=== PATIENT | male | born 1965 | race Caucasian/White ===

== ENCOUNTER 2021-07-06 19:28 | Inpatient (IN) ==
[2021-07-06] MEDS ORDERED: ONDANSETRON INJ 2 MG/ML 2 ML VIAL IV STA (19:57)
[2021-07-06] MEDS ORDERED: SODIUM CHLORIDE 0.9% 1000ML 1,000 ML IV STA (19:57)
--- NOTE | 2021-07-06 20:02 | Emergency Department Note ---
Impression & Plan Ureteral stone with hydronephrosis, Acute left flank pain ED Provider Note NAME: VENKATA PATIÑO AGE: 55 SEX: M : 1965 ARRIVES VIA: Walk-In INFORMANT: Patient, ED PROVIDER(S): Mustapha Lantigua DO CHIEF COMPLAINT: Flank pain HPI: The patient is a 55-year-old male who presented to the emergency department with his spouse for an evaluation of left-sided flank pain. The patient states he has been having symptoms since around March of this year. He does have a history of hypertension. Has been taking his outpatient pain medication at times but today his pain became much worse and he presented to the emergency department for further evaluation. The patient's noticed nausea but no vomiting. He denies having any chest pain. He has had no recent traveling. The patient states he has never had a stent before. He states has been trying to pass his kidney stone for many weeks. He called his family doctor for a foll ow-up appointment or for referral to urology and they could not do that until he was formally seen in their office. He notices dark urine. He notices no fever. He notices no diarrhea. He notices no lower extremity swelling or weakness. He states the pain is moderate to severe. ROS: See above HPI for pertinent positives & negatives. A total of 10 systems reviewed and were otherwise negative. PAST MEDICAL HISTORY: See Below PAST SURGICAL HISTORY: See Below FAMILY HISTORY: See Below SOCIAL HISTORY: See Below HOME MEDICATIONS: See Below ALLERGIES: See Below VITALS: See Below PHYSICAL EXAMINATION: GENERAL: The patient is awake and alert. He is very anxious appearing and appears to be in significant pain. EYES: The conjunctivae are clear. The pupils are round and reactive. EARS, NOSE, MOUTH AND THROAT: The nose is without any evidence of any deformity. NECK: The neck is nontender and supple. RESPIRATORY: Normal respiratory effort is noted there is no evidence of wheezing rhonchi or rales CARDIOVASCULAR: Regular rate and rhythm noted there no murmurs rubs or gallops normal S1 normal S2. GASTROINTESTINAL: The abdomen is soft. Abdomen is nontender. BACK: No midline tenderness was appreciated. Left CVA tenderness was noted to percussion. MUSCULOSKELETAL/EXTREMITIES: There is no evidence of gross deformity full range of motion is noted in the hips and shoulders. SKIN: There is no obvious evidence of any rash. There are no petechiae, pallor or cyanosis noted. NEUROLOGIC: Patient is awake alert and oriented x3 strength is symmetric patellar reflexes are 2+ bilaterally MEDICAL DECISION MAKING: Patient is a 55-year-old male who presented to the emergency department for an evaluation of flank pain and hematuria. Has a known ureteral calculus on the left which she has been trying to deal with for the last few months. Apparently his pain became much worse this evening. He was treated pain medication in the emergency department. He was reevaluated multiple times. I discussed the patient's laboratory and radiographic studies with him. He was found to have significant hydronephrosis with a large ureteral calculus. Given the patient's findings he was evaluated by the [facility] for further inpatient management and possibly urology referral. Triage Nursing notes reviewed. Prior medical records reviewed Vital Signs: reviewed and remarkable for elevated blood pressure. Differential diagnosis: Renal colic, UTI, appendicitis, diverticulitis, mesenteric ischemia, aortic pathology, infections, inflammatory bowel disease, PUD, biliary pathology, as well as other pathologies. ER treatment provided: See below Diagnostics interpreted by me: ECG: none Cardiac Monitoring: An order was placed for continuous cardiac monitoring. The monitor shows a rate of 63 bpm with sinus rhythm. Laboratory studies: As stated above and show below. Imaging studies: See below Consultation(s): I discussed this case with Dr. Salinas is on-call for the [facility]. Past Med/Surg History Medical History Calculus of kidney Hypertension Social History Smoking Status: Never smoker Feels Safe at Home: Yes Allergies Allergies Allergy/AdvReac Type Severity Reaction Status Date / Time ketorolac Allergy Unknown FREAK OUT Verified 06/30/14 02:40 Home Meds Home Medications Medication Instructions Recorded Confirmed lisinopril 20 mg tablet 20 mg PO QAM 07/06/21 07/06/21 sertraline 100 mg tablet 150 mg PO QAM 07/06/21 07/06/21 Results & Data (ED) Vital Signs Vital Signs - 24 hr 07/06/21 19:33 07/06/21 20:07 07/06/21 20:44 Temperature 36.5 C Temperature Source Temporal Artery Scan Pulse Rate 63 Pulse Rate [Apical] 65 58 L Pulse Rate from SpO2 Sensor Pulse Rhythm [Apical] Regular Pulse Strength [Apical] Normal Respiratory Rate 20 15 16 Respiratory Effort / Characteristics Non-Labored Spontaneous Non-Labored Spontaneous Non-Labored Spontaneous Respiratory Depth Normal Normal Normal Respiratory Pattern Regular Regular Blood Pressure 214/105 H Blood Pressure [Left Arm] 171/109 H 177/92 H Blood Pressure Mean 141 Blood Pressure Mean [Left Arm] 129 120 Blood Pressure Position Sitting Blood Pressure Position [Left Arm] Lying Lying Pulse Oximetry 96 97 95 Oxygen Delivery Method Room Air Room Air Room Air Fraction of Inspired Oxygen Sepsis Recent Fever Within 48 Hours No Sepsis New/Unexplained Change in Mental Status N/A Sepsis Action Taken by Nursing No Action Required 07/06/21 21:29 07/06/21 21:33 07/06/21 22:30 Temperature Temperature Source Pulse Rate 61 70 Pulse Rate [Apical] 57 L Pulse Rate from SpO2 Sensor 70 Pulse Rhythm [Apical] Pulse Strength [Apical] Respiratory Rate 15 15 16 Respiratory Effort / Characteristics Non-Labored Spontaneous Respiratory Depth Normal Respiratory Pattern Regular Blood Pressure 161/86 H 176/112 H Blood Pressure [Left Arm] 177/91 H Blood Pressure Mean 111 133 Blood Pressure Mean [Left Arm] 119 Blood Pressure Position Blood Pressure Position [Left Arm] Pulse Oximetry 96 96 96 Oxygen Delivery Method Fraction of Inspired Oxygen Sepsis Recent Fever Within 48 Hours Sepsis New/Unexplained Change in Mental Status Sepsis Action Taken by Nursing 07/06/21 22:44 07/06/21 23:00 Temperature Temperature Source Pulse Rate 60 63 Pulse Rate [Apical] Pulse Rate from SpO2 Sensor Pulse Rhythm [Apical] Pulse Strength [Apical] Respiratory Rate 19 19 Respiratory Effort / Characteristics Non-Labored Spontaneous Respiratory Depth Normal Respiratory Pattern Regular Blood Pressure 166/91 H Blood Pressure [Left Arm] Blood Pressure Mean 116 Blood Pressure Mean [Left Arm] Blood Pressure Position Blood Pressure Position [Left Arm] Pulse Oximetry 95 96 Oxygen Delivery Method Room Air Fraction of Inspired Oxygen 21 Sepsis Recent Fever Within 48 Hours Sepsis New/Unexplained Change in Mental Status Sepsis Action Taken by Prison Medications Current Medication List: was personally reviewed by me Laboratory Data Attestation: I reviewed the patient's lab results. Result diagrams: 07/06/21 20:06 07/06/21 20:06 Lab Results 07/06/21 07/06/21 07/06/21 Range/Units 20:06 20:06 20:06 WBC 10.99 H (4.8-10.8) K/uL RBC 4.60 L (4.7-6.1) M/uL Hgb 15.2 (14.0-18.0) g/dL Hct 43.3 (42-52) % MCV 94.1 (80-100) fL MCH 33.0 (25-34) pg MCHC 35.1 (32-36) g/dL RDW Std Deviation 45.6 (36.4-46.3) fL RDW Coeff of Royer 13.2 (11.5-14.5) % Plt Count 318 (130-400) K/uL MPV 10.3 (7.4-10.4) fL Immature Gran % (Auto) 0.3 % Neut % (Auto) 83.7 % Lymph % (Auto) 7.9 % [place] % (Auto) 7.0 % Eos % (Auto) 0.9 % Baso % (Auto) 0.2 % Neut # (Auto) 9.20 H (1.4-6.5) K/uL Lymph # (Auto) 0.87 L (1.2-3.4) K/uL [place] # (Auto) 0.77 H (0.11-0.59) K/uL Eos # (Auto) 0.10 (0-0.5) K/uL Baso # (Auto) 0.02 (0-0.2) K/uL Immature Gran # (Auto) 0.03 H (0.00-0.02) K/uL APTT (21.0-31.0) Seconds PTT Ratio D-Dimer (0-500) ug/L FEU Sodium 135 L (136-145) mmol/L Potassium 3.6 (3.5-5.1) mmol/L Chloride 103 (98-107) mmol/L Carbon Dioxide 25 (21-32) mmol/L Anion Gap 7 (3-11) BUN 10 (6-23) mg/dl Creatinine 0.75 (0.6-1.4) mg/dl Est Cr Clr Drug Dosing 166.0 ml/min Est GFR ( Amer) 120.5 ml/min Est GFR (Non-Af Amer) 104.0 ml/min BUN/Creatinine Ratio 13.3 (10-20) Glucose 107 H (70-99(Fasting)) mg/dl Calcium 8.9 (8.5-10.1) mg/dl Total Bilirubin 0.8 (0.2-1.0) mg/dl AST 19 (13-39) U/L ALT 18 (7-52) U/L Alkaline Phosphatase 65 (34-104) U/L B-Natriuretic Peptide (0-100) pg/ml Total Protein 6.9 (6.0-8.3) gm/dl Albumin 4.1 (3.4-5.0) gm/dl Globulin 2.8 (2.5-4.0) gm/dl Albumin/Globulin Ratio 1.5 (0.9-2) Lipase 19 (11-82) U/L Urine Color Yellow Urine Appearance Clear (Clear) Urine pH 7.5 (4.5-7.5) Ur Specific [place] 1.002 (1.000-1.030) Urine Protein Negative (Negative) Urine Glucose (UA) Negative (Negative) Urine Ketones Negative (Negative) Urine Blood 2+ H (Negative) Urine Nitrite Negative (Negative) Urine Bilirubin Negative (Negative) Urine Urobilinogen Negative (Negative) Ur Leukocyte Esterase Negative (Negative) Urine WBC (Auto) Not Reportable Urine RBC (Auto) Not Reportable U Hyaline Cast (Auto) Not Reportable U Epithel Cells (Auto) Not Reportable Urine Bacteria (Auto) Not Reportable Urine RBC 10-30 H (0-4) /hpf Urine WBC 0-5 (0-5) /hpf Ur Epithelial Cells 0-5 (0-5) /lpf Urine Bacteria Negative (Negative) SARS-CoV-2, RNA, NAAT (NEGATIVE) 07/06/21 07/06/21 07/06/21 Range/Units 20:06 20:06 21:59 WBC (4.8-10.8) K/uL RBC (4.7-6.1) M/uL Hgb (14.0-18.0) g/dL Hct (42-52) % MCV (80-100) fL MCH (25-34) pg MCHC (32-36) g/dL RDW Std Deviation (36.4-46.3) fL RDW Coeff of Royer (11.5-14.5) % Plt Count (130-400) K/uL MPV (7.4-10.4) fL Immature Gran % (Auto) % Neut % (Auto) % Lymph % (Auto) % [place] % (Auto) % Eos % (Auto) % Baso % (Auto) % Neut # (Auto) (1.4-6.5) K/uL Lymph # (Auto) (1.2-3.4) K/uL [place] # (Auto) (0.11-0.59) K/uL Eos # (Auto) (0-0.5) K/uL Baso # (Auto) (0-0.2) K/uL Immature Gran # (Auto) (0.00-0.02) K/uL APTT 26.4 (21.0-31.0) Seconds PTT Ratio 1.0 D-Dimer 530 H* (0-500) ug/L FEU Sodium (136-145) mmol/L Potassium (3.5-5.1) mmol/L Chloride (98-107) mmol/L Carbon Dioxide (21-32) mmol/L Anion Gap (3-11) BUN (6-23) mg/dl Creatinine (0.6-1.4) mg/dl Est Cr Clr Drug Dosing ml/min Est GFR ( Amer) ml/min Est GFR (Non-Af Amer) ml/min BUN/Creatinine Ratio (10-20) Glucose (70-99(Fasting)) mg/dl Calcium (8.5-10.1) mg/dl Total Bilirubin (0.2-1.0) mg/dl AST (13-39) U/L ALT (7-52) U/L Alkaline Phosphatase (34-104) U/L B-Natriuretic Peptide 57 (0-100) pg/ml Total Protein (6.0-8.3) gm/dl Albumin (3.4-5.0) gm/dl Globulin (2.5-4.0) gm/dl Albumin/Globulin Ratio (0.9-2) Lipase (11-82) U/L Urine Color Urine Appearance (Clear) Urine pH (4.5-7.5) Ur Specific [place] (1.000-1.030) Urine Protein (Negative) Urine Glucose (UA) (Negative) Urine Ketones (Negative) Urine Blood (Negative) Urine Nitrite (Negative) Urine Bilirubin (Negative) Urine Urobilinogen (Negative) Ur Leukocyte Esterase (Negative) Urine WBC (Auto) Urine RBC (Auto) U Hyaline Cast (Auto) U Epithel Cells (Auto) Urine Bacteria (Auto) Urine RBC (0-4) /hpf Urine WBC (0-5) /hpf Ur Epithelial Cells (0-5) /lpf Urine Bacteria (Negative) SARS-CoV-2, RNA, NAAT NEGATIVE (NEGATIVE) Administered Medications Discontinued Medications Sodium Chloride (Nss 1000ml) 1,000 mls @ 999 mls/hr IV .Q1H1M STA Stop: 07/06/21 20:57 Last Infusion: 07/06/21 21:22 Dose: 0 mls/hr Documented by: [id number] Admin: 07/06/21 20:10 Dose: 999 mls/hr Documented by: [id number] Lisinopril (Lisinopril 10 Mg Tab) 10 mg PO NOW STA Stop: 07/06/21 22:30 Last Admin: 07/06/21 22:55 Dose: 10 mg Documented by: [id number] Morphine Sulfate (Morphine Sulfate 4 Mg/Ml 1 Ml Carp\Vial) 4 mg IV Q15M PRN PRN Reason: Pain Stop: 07/20/21 19:56 Last Admin: 07/06/21 22:56 Dose: 4 mg Documented by: [id number] Admin: 07/06/21 21:30 Dose: 4 mg Documented by: [id number] Admin: 07/06/21 20:10 Dose: 4 mg Documented by: [id number] Ondansetron HCl (Ondansetron Inj 2 Mg/Ml 2 Ml Vial) 4 mg IV NOW STA Stop: 07/06/21 19:58 Last Admin: 07/06/21 20:11 Dose: 4 mg Documented by: [id number] Tamsulosin HCl (Tamsulosin Hcl 0.4 Mg Cap) 0.4 mg PO NOW ONE Stop: 07/06/21 22:55 Last Admin: 07/06/21 23:58 Dose: 0.4 mg Documented by: [id number] Imaging Data Radiologist's Impression: Abdomen/Pelvis CT 07/06/21 19:57 CT OF THE ABDOMEN AND PELVIS WITHOUT CONTRAST CLINICAL HISTORY: Left flank pain. COMPARISON STUDY: CT of the abdomen and pelvis May 28, 2014. TECHNIQUE: Axial images of the abdomen and pelvis were obtained without IV contrast. Images were reviewed in the axial, sagittal, and coronal planes. Automated exposure control was utilized for the study. A dose lowering technique was utilized adhering to the principles of ALARA. FINDINGS: Lung bases are unremarkable. Elevation of the right hemidiaphragm is unchanged. Moderate to severe left hydronephrosis is due to a 7 mm calculus within the distal left ureter, located just inferior to the level of the sacroiliac joint. There is adjacent perinephric and periureteral stranding. 2 calculi within lower pole of the left kidney measure up to 5 mm. No right-sided urinary calculi are present. There is slight prominence of right collecting system without hydronephrosis. Prostate is enlarged, measuring 5.8 cm in transverse dimension. Evaluation of the remainder of the abdomen and pelvis is suboptimal on this unenhanced exam. Unenhanced images of the liver, spleen, adrenal glands and pancreas are unremarkable. Colonic diverticulosis is noted without evidence for acute diverticulitis. There is no evidence for a bowel obstruction. The appendix is normal. Fat-containing bilateral inguinal hernias, left larger than right, are present. IMPRESSION: 1. 7 mm left ureteral calculus which results in moderate to severe left hydronephrosis. The ureteral calculus is within the distal ureter, just inferior to the level of the sacroiliac joint. 2. Left-sided nephrolithiasis. 3. Colonic diverticulosis. No evidence for acute diverticulitis. 4. Enlarged prostate. ACT 112: Negative or not required by law. Electronically signed by: Toni Montenegro M.D. 07/06/2021 10:04 PM Discharge Plan Visit Data Chief Complaint: Hematuria Stated Complaint: KIDNEY STONE, BLOOD IN URINE ED Provider: Mustapha Lantigua Discharge Problem: Ureteral stone with hydronephrosis, Acute left flank pain Patient Disposition: Being Evaluated by Hospitalist Forms Stand Alone Forms: My [employer] Prescriptions Prescriptions: No Action lisinopril 20 mg tablet 20 mg PO QAM RF: 0 sertraline 100 mg tablet 150 mg PO QAM RF: 0 Referrals Referrals: PCP,NO [Primary Care Provider] -
[2021-07-06] MEDS: MoRPHine SULFATE 4 MG/ML 1 ML CARP\\VIAL IV PRN ×3 (20:10→22:56)
[2021-07-06 20:24] LABS: Basophils # (auto) 0.02 K/uL (0-0.2); Basophils % (auto) 0.2 %; Eosinophils % (auto) 0.9 %; Hematocrit (blood only) 43.3 % (42-52); Hemoglobin 15.2 g/dL (14.0-18.0); Immature Granulocytes # (auto) 0.03 K/uL (0.00-0.02); Immature Granulocytes % (auto) 0.3 %; Lymphocytes # (auto) 0.87 K/uL (1.2-3.4); Lymphocytes % (auto) 7.9 %; Mean Corpuscular Hgb Conc 35.1 g/dL (32-36); Mean Corpuscular Volume 94.1 fL (80-100); Mean Platelet Volume 10.3 fL (7.4-10.4); Monocytes # (auto) 0.77 K/uL (0.11-0.59); Neutrophils % (auto) 83.7 %; Platelet Count 318 K/uL (130-400); RDW Coefficient of Variation 13.2 % (11.5-14.5); RDW Standard Deviation 45.6 fL (36.4-46.3); White Blood Count 10.99 K/uL (4.8-10.8)
[2021-07-06 20:31] LABS: Appearance Urine Clear (Clear); Bilirubin Urine Negative (Negative); Blood Urine 2+ (Negative); Color Urine Yellow; Glucose Urine UA Negative (Negative); Ketones Urine Negative (Negative); Leukocyte Esterase Urine Negative (Negative); Nitrite Urine Negative (Negative); Protein Urine Negative (Negative); Specific Gravity Urine 1.002 (1.000-1.030); Urobilinogen Urine Negative (Negative); pH Urine 7.5 (4.5-7.5)
[2021-07-06 20:54] LABS: Bacteria Urine Negative (Negative); Epithelial Cell Urine 0-5 /lpf (0-5); WBC Urine 0-5 /hpf (0-5)
[2021-07-06 20:58] LABS: Albumin Globulin Ratio 1.5 (0.9-2); Albumin Level 4.1 gm/dl (3.4-5.0); BUN Creatinine Ratio 13.3 (10-20); Bilirubin,Total 0.8 mg/dl (0.2-1.0); Calcium 8.9 mg/dl (8.5-10.1); Est GFR (African American) 120.5 ml/min; Globulin 2.8 gm/dl (2.5-4.0); Potassium 3.6 mmol/L (3.5-5.1); Total Protein 6.9 gm/dl (6.0-8.3)
--- NOTE | 2021-07-06 22:07 | CT Scan Report ---
CT OF THE ABDOMEN AND PELVIS WITHOUT CONTRAST CLINICAL HISTORY: Left flank pain. COMPARISON STUDY: CT of the abdomen and pelvis May 28, 2014. TECHNIQUE: Axial images of the abdomen and pelvis were obtained without IV contrast. Images were revi ewed in the axial, sagittal, and coronal planes. Automated exposure control was utilized for the matt dy. A dose lowering technique was utilized adhering to the principles of ALARA. FINDINGS: Lung bases are unremarkable. Elevation of the right hemidiaphragm is unchanged. Moderate to severe left hydronephrosis is due to a 7 mm calculus within the distal left ureter, located just inf erior to the level of the sacroiliac joint. There is adjacent perinephric and periureteral stranding. 2 calculi within lower pole of the left kidney measure up to 5 mm. No right-sided urinary calculi ar e present. There is slight prominence of right collecting system without hydronephrosis. Prostate is enlarged, measuring 5.8 cm in transverse dimension. Evaluation of the remainder of the abdomen and pe lvis is suboptimal on this unenhanced exam. Unenhanced images of the liver, spleen, adrenal glands an d pancreas are unremarkable. Colonic diverticulosis is noted without evidence for acute diverticuliti s. There is no evidence for a bowel obstruction. The appendix is normal. Fat-containing bilateral ing uinal hernias, left larger than right, are present. IMPRESSION: 1. 7 mm left ureteral calculus which results in moderate to severe left hydronephrosis. The ureteral calculus is within the distal ureter, just inferior to the level of the sacroiliac joint. 2. Left-sided nephrolithiasis. 3. Colonic diverticulosis. No evidence for acute diverticulitis. 4. Enlarged prostate. ACT 112: Negative or not required by law. Electronically signed by: Toni Montenegro M.D. 07/06/2021 10:04 PM
[2021-07-06] MEDS ORDERED: lisinopril 10 MG TAB PO STA (22:29)
--- NOTE | 2021-07-06 22:31 | History & Physical Report ---
Date of Service July 06, 2021 Assessment & Plan (1) Ureteral stone with hydronephrosis: Plan: Obstructive uropathy secondary to recurrent urolithiasis No sepsis for now Hypertensive urgency secondary to above FARIHA on CPAP GERD status post surgery LE swelling without chest pain/SOB complaints rule out DVT given abnormal D- dimer Medical telemetry given uncontrolled BP Strain urine Urology consult Re: Obstructive uropathy (Patient already seen at the ER by urology provider recommends Flomax trial and n.p.o. status after midnight in anticipation of procedural intervention in a.m.) Analgesia, titrate home BP meds LE venous Dopplers rule out DVT DVT prophylaxis. Lovenox subcu Full code Text document was generated using [employer] voice recognition software. It may contain grammatical or spelling errors. Kindly contact undersigned for clarification of any documentation item in question. History of Present Illness Chief Complaint: Left flank pain Primary Care Provider: Dr. Haines of [facility] History obtained from patient and records. Medical history significant for hypertension, FARIHA on CPAP, chronic hoarseness, GERD status post surgery, BPH, urolithiasis. 4 months history of intermittent achy left flank pain complaints with occasional hematuria reminiscent of kidney stone symptoms. No fever, no chills. No consultations done. Worsening pain noted along with nausea today. Patient consulted ER for evaluation. Medical History as above Surgical History : ESWL, esophagogastric fundoplasty, hernia surgery Family History : Heart disease Personal/Social history : Non-smoker, occasional EtOH intake, [employer] employee Allergies Allergy/AdvReac Type Severity Reaction Status Date / Time ketorolac Allergy Unknown FREAK OUT Verified 06/30/14 02:40 Home Medications Medication Instructions Recorded Confirmed Type lisinopril 20 mg tablet 20 mg PO QAM 07/06/21 07/06/21 History sertraline 100 mg tablet 150 mg PO QAM 07/06/21 07/06/21 History Past Med/Surg History Medical History Calculus of kidney Hypertension Social History Smoking Status: Never smoker Second Hand Exposure: No; Do You Dip or Chew Tobacco: Yes; Tobacco Cessation Education Requested by Patient: No Hx Alcohol Use: No Hx Substance Use: No Preferred Language: Nepalese Communication Ability: Effective Operating Room Technologist Required: No Beliefs That Will Affect Care: None Current Living Situation: Spouse Current Living Situation Comment: Lives at home with Other Information That Helps Us Care for You: No Feels Safe at Home: Yes Safety Concerns: Feels Safe At This Time Assistive Devices: CPAP Review of Systems Review of Systems: As per HPI, all 10 systems reviewed, all other ROS negative Physical Exam Physical Exam: GENERAL: Slightly uncomfortable, pleasant, morbidly obese, dysphonic (chronic ), no respiratory distress SKIN: Normal color, warm HEENT: [place] palpebral conjunctivae, no ptosis, dry buccal mucosa NECK : Supple, short neck, no tenderness CHEST : CTA, no tenderness HEART : Bradycardic, no obvious murmurs ABDOMEN: Some distention, nontender BACK : Minimal left flank tenderness EXTREMITIES : Bilateral LE swelling right greater than the left (new as per patient), no tenderness, no other conspicuous deformities noted NEUROLOGIC : Coherent, no facial asymmetry, no other gross focality Results & Data Results & Data ([facility]) Vital Signs (Past 12 Hours) Vital Signs Temp Pulse Pulse Resp BP BP Pulse Ox 07/06/21 21:33 61 15 161/86 H 96 07/06/21 21:29 57 L 15 177/91 H 96 07/06/21 20:44 58 L 16 177/92 H 95 07/06/21 20:07 65 15 171/109 H 97 07/06/21 19:33 36.5 C 63 20 214/105 H 96 Laboratory Results Laboratory Results WBC 10.99 K/uL (4.8-10.8) H 07/06/21 20:06 RBC 4.60 M/uL (4.7-6.1) L 07/06/21 20:06 Hgb 15.2 g/dL (14.0-18.0) 07/06/21 20:06 Hct 43.3 % (42-52) 07/06/21 20:06 MCV 94.1 fL (80-100) 07/06/21 20:06 MCH 33.0 pg (25-34) 07/06/21 20:06 MCHC 35.1 g/dL (32-36) 07/06/21 20:06 RDW Std Deviation 45.6 fL (36.4-46.3) 07/06/21 20:06 RDW Coeff of [place] 13.2 % (11.5-14.5) 07/06/21 20:06 Plt Count 318 K/uL (130-400) 07/06/21 20:06 MPV 10.3 fL (7.4-10.4) 07/06/21 20:06 Immature Gran % (Auto) 0.3 % 07/06/21 20:06 Neut % (Auto) 83.7 % 07/06/21 20:06 Lymph % (Auto) 7.9 % 07/06/21 20:06 [place] % (Auto) 7.0 % 07/06/21 20:06 Eos % (Auto) 0.9 % 07/06/21 20:06 Baso % (Auto) 0.2 % 07/06/21 20:06 Neut # (Auto) 9.20 K/uL (1.4-6.5) H 07/06/21 20:06 Lymph # (Auto) 0.87 K/uL (1.2-3.4) L 07/06/21 20:06 [place] # (Auto) 0.77 K/uL (0.11-0.59) H 07/06/21 20:06 Eos # (Auto) 0.10 K/uL (0-0.5) 07/06/21 20:06 Baso # (Auto) 0.02 K/uL (0-0.2) 07/06/21 20:06 Immature Gran # (Auto) 0.03 K/uL (0.00-0.02) H 07/06/21 20:06 Sodium 135 mmol/L (136-145) L 07/06/21 20:06 Potassium 3.6 mmol/L (3.5-5.1) 07/06/21 20:06 Chloride 103 mmol/L (98-107) 07/06/21 20:06 Carbon Dioxide 25 mmol/L (21-32) 07/06/21 20:06 Anion Gap 7 (3-11) 07/06/21 20:06 BUN 10 mg/dl (6-23) 07/06/21 20:06 Creatinine 0.75 mg/dl (0.6-1.4) 07/06/21 20:06 Est Cr Clr Drug Dosing 166.0 ml/min 07/06/21 20:06 Est GFR ( Amer) 120.5 ml/min 07/06/21 20:06 Est GFR (Non-Af Amer) 104.0 ml/min 07/06/21 20:06 BUN/Creatinine Ratio 13.3 (10-20) 07/06/21 20:06 Glucose 107 mg/dl (70-99(Fasting)) H 07/06/21 20:06 Calcium 8.9 mg/dl (8.5-10.1) 07/06/21 20:06 Total Bilirubin 0.8 mg/dl (0.2-1.0) 07/06/21 20:06 AST 19 U/L (13-39) 07/06/21 20:06 ALT 18 U/L (7-52) 07/06/21 20:06 Alkaline Phosphatase 65 U/L (34-104) 07/06/21 20:06 Total Protein 6.9 gm/dl (6.0-8.3) 07/06/21 20:06 Albumin 4.1 gm/dl (3.4-5.0) 07/06/21 20:06 Globulin 2.8 gm/dl (2.5-4.0) 07/06/21 20:06 Albumin/Globulin Ratio 1.5 (0.9-2) 07/06/21 20:06 Lipase 19 U/L (11-82) 07/06/21 20:06 Urine Color Yellow 07/06/21 20:06 Urine Appearance Clear (Clear) 07/06/21 20:06 Urine pH 7.5 (4.5-7.5) 07/06/21 20:06 Ur Specific [place] 1.002 (1.000-1.030) 07/06/21 20:06 Urine Protein Negative (Negative) 07/06/21 20:06 Urine Glucose (UA) Negative (Negative) 07/06/21 20:06 Urine Ketones Negative (Negative) 07/06/21 20:06 Urine Blood 2+ (Negative) H 07/06/21 20:06 Urine Nitrite Negative (Negative) 07/06/21 20:06 Urine Bilirubin Negative (Negative) 07/06/21 20:06 Urine Urobilinogen Negative (Negative) 07/06/21 20:06 Ur Leukocyte Esterase Negative (Negative) 07/06/21 20:06 Urine WBC (Auto) Not Reportable 07/06/21 20:06 Urine RBC (Auto) Not Reportable 07/06/21 20:06 U Hyaline Cast (Auto) Not Reportable 07/06/21 20:06 U Epithel Cells (Auto) Not Reportable 07/06/21 20:06 Urine Bacteria (Auto) Not Reportable 07/06/21 20:06 Urine RBC 10-30 /hpf (0-4) H 07/06/21 20:06 Urine WBC 0-5 /hpf (0-5) 07/06/21 20:06 Ur Epithelial Cells 0-5 /lpf (0-5) 07/06/21 20:06 Urine Bacteria Negative (Negative) 07/06/21 20:06 SARS-CoV-2, RNA, NAAT NEGATIVE (NEGATIVE) 07/06/21 21:59 Impressions Abdomen/Pelvis CT 07/06/21 19:57 CT OF THE ABDOMEN AND PELVIS WITHOUT CONTRAST CLINICAL HISTORY: Left flank pain. COMPARISON STUDY: CT of the abdomen and pelvis May 28, 2014. TECHNIQUE: Axial images of the abdomen and pelvis were obtained without IV contrast. Images were reviewed in the axial, sagittal, and coronal planes. Automated exposure control was utilized for the study. A dose lowering technique was utilized adhering to the principles of ALARA. FINDINGS: Lung bases are unremarkable. Elevation of the right hemidiaphragm is unchanged. Moderate to severe left hydronephrosis is due to a 7 mm calculus within the distal left ureter, located just inferior to the level of the sacroiliac joint. There is adjacent perinephric and periureteral stranding. 2 calculi within lower pole of the left kidney measure up to 5 mm. No right-sided urinary calculi are present. There is slight prominence of right collecting system without hydronephrosis. Prostate is enlarged, measuring 5.8 cm in transverse dimension. Evaluation of the remainder of the abdomen and pelvis is suboptimal on this unenhanced exam. Unenhanced images of the liver, spleen, adrenal glands and pancreas are unremarkable. Colonic diverticulosis is noted without evidence for acute diverticulitis. There is no evidence for a bowel obstruction. The appendix is normal. Fat-containing bilateral inguinal hernias, left larger than right, are present. IMPRESSION: 1. 7 mm left ureteral calculus which results in moderate to severe left hy dronephrosis. The ureteral calculus is within the distal ureter, just inferior to the level of the sacroiliac joint. 2. Left-sided nephrolithiasis. 3. Colonic diverticulosis. No evidence for acute diverticulitis. 4. Enlarged prostate. ACT 112: Negative or not required by law. Electronically signed by: Toni Montenegro M.D. 07/06/2021 10:04 PM Diagnostic Findings Chest x-ray as per my interpretation elevated right hemidiaphragm, atelectasis, congestion
[2021-07-06] MEDS ORDERED: MoRPHine SULFATE 4 MG/ML 1 ML CARP\\VIAL IV PRN (22:39)
[2021-07-06] MEDS ORDERED: PROMETHAZINE HCL 6.25 MG in SODIUM CHLORIDE 0.9% 50 ML IV PRN (22:39)
[2021-07-06 22:45] LABS: Partial Thromboplastin Time 26.4 Seconds (21.0-31.0)
[2021-07-06 22:49] LABS: D Dimer 530 ug/L FEU (0-500)
--- NOTE | 2021-07-06 22:49 | Urology Consultation ---
Date of Consultation July 06, 2021 Assessment & Plan (1) Flank pain: Due to the patient's imaging and clinical presentation he has been admitted on the hospitalist service. Recommend proceeding as follows: Provide analgesics Provide antiemetics Strain all urine to save any kidney stones so they can be analyzed Provide hydration with IV fluids Consider initiating Flomax for expulsive therapy Make the patient n.p.o. after midnight in the event of cystoscopic intervention will be required in the morning History of Present Illness Reason for Consultation: Nephrolithiasis History of Present Illness This 55-year-old male who presented to [facility] emergency department secondary to left flank pain. Patient says the pain is located in the left flank with some radiation to the front of his abdomen. He reports some nausea without vomiting. He denies any fevers, shakes, chills. He denies any dysuria or urinary frequency but does note hematuria. Patient believes that he has been suffering from a kidney stone since March and he was hoping that the stone would pass on its own however the pain became unbearable prompting his visit to the emergency department. He does note that he has had lithotripsy in the past. In the emergency department the patient had labs and imaging which I independently reviewed. A CT scan of the abdomen pelvis showed a 7 mm left ureteral calculus resulting in severe left hydronephrosis. This calculus is located in the distal ureter. Labs include a CBC her white blood cell count was 10.9. Hemoglobin, hematocrit, and platelet count were noted to be normal. Chemistry profile showed sodium was 135. Potassium, BUN, and creatinine were all noted to be normal. A urinalysis showed 2+ blood but was otherwise not indicative of infection. A COVID test was noted to be negative. At the time of my interview the patient was resting comfortably in bed and he was in no distress. His pain was well controlled. Allergies Allergy/AdvReac Type Severity Reaction Status Date / Time ketorolac Allergy Unknown FREAK OUT Verified 06/30/14 02:40 Home Medications Medication Instructions Recorded Confirmed Type lisinopril 20 mg tablet 20 mg PO QAM 07/06/21 07/06/21 History sertraline 100 mg tablet 150 mg PO QAM 07/06/21 07/06/21 History Patient History Medical History Calculus of kidney Social History Smoking Status: Never smoker Feels Safe at Home: Yes Review of Systems Constitutional: no fever and no chills Eyes: no diplopia Ear, Nose, Mouth, Throat: no ear pain Respiratory: no cough and no dyspnea Cardiovascular: no chest pain Gastrointestinal: + nausea; no abdominal pain and no vomiting Genitourinary: + as per Subjective / HPI Musculoskeletal: + back pain (Left flank) Integumentary: no rash Neurologic: no localized weakness Physical Exam Constitutional: WD/WN, vitals as above Eyes: no conjunctival abnormality ENMT: Ears: no hearing impairment Neck: trachea midline Respiratory: normal respiratory effort; no respiratory distress and no labored breathing Cardiovascular: Rate/Rhythm: regular rate and regular rhythm Gastrointestinal (Abdomen): Soft, nontender Musculoskeletal: No calf tenderness Skin: no rashes Neurologic: moves all extremities Psychiatric: A+Ox3, euthymic affect Genitourinary: + CVA tenderness (Minimal CVA tenderness on the left side with percussion) Results & Data ([facility]) Vital Signs (Past 12 Hours) Vital Signs Temp Pulse Pulse Resp BP BP Pulse Ox 07/06/21 22:30 70 16 176/112 H 96 07/06/21 21:33 61 15 161/86 H 96 07/06/21 21:29 57 L 15 177/91 H 96 07/06/21 20:44 58 L 16 177/92 H 95 07/06/21 20:07 65 15 171/109 H 97 07/06/21 19:33 36.5 C 63 20 214/105 H 96 PG Care Time/CCT Total # of Minutes Spent Total Time Spent with Patient: Total time spent is greater than 50% in coordination of care (as documented) at patient's floor/unit and/or counseling patient: Coding Level of Care Code 91366 Inpt Consult Level 5 Diagnoses Flank pain R10.9
[2021-07-06] MEDS ORDERED: TAMSULOSIN HCL 0.4 MG CAP PO ONE (22:54)
[2021-07-06] MEDS ORDERED: MoRPHine SULFATE 10 MG/ML CARP/VIAL IV PRN (23:09)
[2021-07-07] MEDS ORDERED: SODIUM CHLORIDE 0.9% 1000ML 1,000 ML IV SCH (00:01)
[2021-07-07] MEDS ORDERED: SODIUM CHLORIDE 0.9% 1000ML 1,000 ML IV ONE (00:13)
[2021-07-07] MEDS: oxyCODONE HCL IR 5 MG TAB (IMMEDIATE RELEASE) PO PRN ×4 (00:47→19:42)
[2021-07-07] MEDS ORDERED: PROMETHAZINE HCL 12.5 MG in SODIUM CHLORIDE 0.9% 50 ML IV PRN (01:01)
[2021-07-07] MEDS ORDERED: ACETAMINOPHEN 325 MG TAB PO PRN (01:32)
--- NOTE | 2021-07-07 06:37 | Ultrasound Report ---
BILATERAL LOWER EXTREMITY VENOUS DOPPLER HISTORY: Acute pain and swelling of the right lower leg leg swelling COMPARISON STUDY: None. FINDINGS: There is normal compressibility, flow, and augmentation within the bilateral lower extremit y deep venous systems. IMPRESSION: No DVT within the right or left lower extremity. ACT 112: Negative or not required by law. Electronically signed by: Ernesto Batista M.D. 07/07/2021 6:35 AM
--- NOTE | 2021-07-07 06:50 | XRay Report ---
XR chest 1V portable HISTORY: 55 years-old Male leg swelling acute swelling of the lower extremities COMPARISON: Chest radiographs 06/03/2014 TECHNIQUE: Portable AP view of the chest FINDINGS: The cardiac silhouette is enlarged. Moderate right hemidiaphragmatic elevation. Pulmonary vascular co ngestion. Mild bibasilar densities. There is no pneumothorax or large pleural effusion. No overt pulm onary edema. Apparent coarsening of interstitium is likely secondary to patient body habitus. Degener ative changes of the shoulders and spine. IMPRESSION: 1. Cardiomegaly with pulmonary vascular congestion. 2. Chronic right hemidiaphragmatic elevation with bibasilar atelectasis. ACT 112: Negative or not required by law. The above report was generated using voice recognition software. It may contain grammatical, syntax o r spelling errors. Electronically signed by: Ernesto Batista M.D. 07/07/2021 6:47 AM
[2021-07-07] MEDS: ENOXAPARIN INJ 40 MG/0.4 ML SYR SQ SCH (07:10)
[2021-07-07] MEDS: lisinopril 20 MG TAB PO SCH (07:10)
[2021-07-07] MEDS: SERTRALINE HCL 50 MG TABLET PO SCH (07:10)
[2021-07-07 08:06] LABS: Basophils # (auto) 0.02 K/uL (0-0.2); Basophils % (auto) 0.3 %; Eosinophils # (auto) 0.21 K/uL (0-0.5); Eosinophils % (auto) 3.6 %; Hematocrit (blood only) 38.4 % (42-52); Hemoglobin 13.1 g/dL (14.0-18.0); Immature Granulocytes # (auto) 0.01 K/uL (0.00-0.02); Immature Granulocytes % (auto) 0.2 %; Lymphocytes # (auto) 1.08 K/uL (1.2-3.4); Lymphocytes % (auto) 18.3 %; Mean Corpuscular Hemoglobin 32.8 pg (25-34); Mean Corpuscular Hgb Conc 34.1 g/dL (32-36); Mean Platelet Volume 10.3 fL (7.4-10.4); Monocytes # (auto) 0.56 K/uL (0.11-0.59); Monocytes % (auto) 9.5 %; Neutrophils # (auto) 4.02 K/uL (1.4-6.5); Neutrophils % (auto) 68.1 %; Platelet Count 267 K/uL (130-400); RDW Coefficient of Variation 13.5 % (11.5-14.5); RDW Standard Deviation 47.4 fL (36.4-46.3)
[2021-07-07 08:28] LABS: BUN Creatinine Ratio 12.7 (10-20); Calcium 8.3 mg/dl (8.5-10.1); Creatinine Clr Calc Pharmacy 121.5 ml/min; Est GFR (African American) 96.1 ml/min; Est GFR (Non-African American) 82.9 ml/min; Potassium 3.5 mmol/L (3.5-5.1)
--- NOTE | 2021-07-07 09:20 | Urology Progress Note ---
Date of Service July 07, 2021 Assessment & Plan (1) Acute left flank pain: (2) Ureteral stone with hydronephrosis: Plan: 55 yo M admitted for left renal colic secondary to 7 mm distal left ureteral stone with hydronephrosis. - Plan of care reviewed with Dr. Brady, urologist retort feeder ground bone. - Pt afebrile, nontoxic, lab work reviewed - creatinine 1.02, WBC 5.90, Hgb 13.1. - UA on admission not suggestive of infection, no urine culture pending. - Continues to have intermittent flank pain ongoing for months. - Discussed options for stone management including surgical intervention while inpatient with ureteroscopy and left stent placement/possible stone treatment vs outpatient ESWL. Also discussed discharge to home if doing well to follow-up outpatient. - Ureteral stents were discussed as well as post-operative issues and pain management. - Patient wishes to proceed with surgical intervention today. - Given hydronephrosis and left renal colic in the context of an obstructing 7 mm distal left ureteral stone, will proceed with OR for cystoscopy, left retrograde pyelogram, left ureteral stent placement and possible stone treatment. - Risks and benefits to be reviewed with patient by Dr. Brady. OR notified. Preop EKG ordered. - Will cover with IV Ciprofloxacin preoperatively. - Keep NPO. - Continue supportive care, antibiotics and management per primary team. Admission and Anticipated Discharge Date Admission Date: July 06, 2021 Supervising Physician Co-Signing Physician Notes I have discussed Mr. Blanton's case with CORTNEY Hollis and agree with the above documentation. 55-year-old male with left-sided obstructing ureteral stone and moderately controlled pain. We will plan for intervention in the OR with either stent placement or possible stone treatment today. Subjective Pt seen and examined at bedside this AM. He is awake, alert and resting in bed. Continues to have intermittent left flank pain. Received PO oxycodone 10 mg this AM with moderate relief, pain rated 4/10 currently. No nausea or vomiting. Voiding spontaneously, no dysuria or hematuria presently. No fever or chills. No chest pain or shortness of breath. He is NPO. Review of Systems Constitutional: as per Subjective / HPI Eyes: no problem reported Ear, Nose, Mouth, Throat: no problem reported Respiratory: no dyspnea Cardiovascular: no chest pain Gastrointestinal: as per Subjective / HPI Genitourinary: + as per Subjective / HPI Musculoskeletal: no problem reported Integumentary: no problem reported Neurologic: no problem reported Psychiatric: no problem reported Physical Exam Constitutional: well developed, well nourished and + obese; no acute distress and not ill appearing Eyes: no scleral abnormality Neck: normal visual inspection Respiratory: normal respiratory effort and able to speak in complete sentences; no respiratory distress and no labored breathing Cardiovascular: Extremities: no pedal edema Gastrointestinal (Abdomen): Inspection/Auscultation: abdomen normal to inspection; abdomen not distended Percussion/Palpation: abdomen soft; abdomen nontender and no guarding Musculoskeletal: Head/Neck/Chest: normocephalic Skin: no visible skin rashes Neurologic: moves all extremities and awake Psychiatric: Orientation: alert and oriented x 3 Genitourinary: no CVA tenderness Urinal at bedside - urine is light roxie color Results & Data ([facility]) Vital Signs (Past 12 Hours) Vital Signs Temp Pulse Pulse Pulse Resp BP BP 07/07/21 08:00 36.7 C 65 18 07/07/21 04:25 36.9 C 84 20 128/70 07/07/21 03:11 59 L 12 07/07/21 01:56 63 07/07/21 01:33 36.8 C 66 20 154/83 H 07/07/21 01:32 07/06/21 23:30 58 L 18 159/96 H 07/06/21 23:00 63 19 166/91 H 07/06/21 22:44 60 19 07/06/21 22:30 70 16 176/112 H 07/06/21 21:33 61 15 161/86 H 07/06/21 21:29 57 L 15 177/91 H BP Pulse Ox Pulse Ox 07/07/21 08:00 127/67 93 07/07/21 04:25 97 07/07/21 03:11 93 07/07/21 01:56 07/07/21 01:33 96 07/07/21 01:32 96 07/06/21 23:30 95 07/06/21 23:00 96 07/06/21 22:44 95 07/06/21 22:30 96 07/06/21 21:33 96 07/06/21 21:29 96 PG Care Time/CCT Total # of Minutes Spent Total Time Spent with Patient: Total time spent is greater than 50% in coordination of care (as documented) at patient's floor/unit and/or counseling patient: Coding Level of Care Code 94869 Subseq Hosp Care Lvl 2 Diagnoses Acute left flank pain R10.9 Ureteral stone with hydronephrosis N13.2
[2021-07-07] MEDS ORDERED: CIPROFLOXACIN / D5W 400 MG/200 ML BAG IV SCH (09:30)
[2021-07-07] MEDS ORDERED: fentaNYL citrate 100 MCG/2 ML VIAL ONE (09:47)
[2021-07-07] MEDS ORDERED: MIDAZOLAM HCL 1 MG/ML 2ML VIAL ONE (09:47)
--- NOTE | 2021-07-07 09:59 | Anesthesiology Consultation ---
Date of Service July 07, 2021 Assessment & Plan (1) Encounter for pre-operative examination: Chart Review Chart Review: Acceptable Risk for Surgery History Surgery Operation Date: 07/07/21 08:50 Proposed Procedures p Cystoscopy, Left Stent Placement, Possible Stone Treatment - Brice Brady MD Height/Weight Height: 5 ft 11 in Weight: 146.4 kg Allergies Allergy/AdvReac Type Severity Reaction Status Date / Time ketorolac Allergy Unknown FREAK OUT Verified 06/30/14 02:40 Medications Home Medications Medication Instructions Recorded Confirmed Last Taken lisinopril 20 mg tablet 20 mg PO QAM 07/06/21 07/06/21 Unknown sertraline 100 mg tablet 150 mg PO QAM 07/06/21 07/06/21 Unknown Active Medications Generic Name Dose Route Start Last Admin Trade Name Freq PRN Reason Stop Dose Admin Enoxaparin Sodium 40 mg 07/07/21 09:00 07/07/21 07:10 Enoxaparin Inj 40 Mg/0.4 Ml Syr SQ 08/06/21 08:59 40 mg QAM CANDY Administration Sodium Chloride 1,000 mls @ 60 mls/hr 07/07/21 00:13 07/07/21 09:55 Nss 1000ml IV 07/07/21 16:52 0 mls/hr .[id number] ONE Infusion Lisinopril 20 mg 07/07/21 09:00 07/07/21 07:10 Lisinopril 20 Mg Tab PO 08/06/21 08:59 20 mg QAM CANDY Administration Oxycodone HCl 5 - 10 mg 07/06/21 22:39 07/07/21 07:00 Oxycodone Hcl Ir 5 Mg Tab (Immediate Release) PO 07/20/21 22:38 10 mg QID PRN Administration Pain Sertraline HCl 150 mg 07/07/21 09:00 07/07/21 07:10 Sertraline Hcl 50 Mg Tablet PO 08/06/21 08:59 150 mg QAM CANDY Administration Past Medical History Medical History (Updated 07/07/21 @ 10:05 by Melvin Espinal MD) Calculus of kidney Hypertension Obesity Past Surgical History Surgical History (Updated 07/07/21 @ 10:02 by Melvin Espinal MD) History of lithotripsy History of Heri fundoplication Social History Smoking Status: Never smoker Do You Dip or Chew Tobacco: Yes Hx Alcohol Use: No Hx Substance Use: No Physical Exam Vital Signs Last Vital Signs Temp 36.7 C 07/07/21 08:00 Pulse 65 07/07/21 08:00 Resp 18 07/07/21 08:00 BP 127/67 07/07/21 08:00 Pulse Ox 93 07/07/21 08:00 Testing Laboratory Results 07/07/21 07:30 07/07/21 07:30 APTT 26.4 Seconds (21.0-31.0) 07/06/21 20:06 Urine Color Yellow 07/06/21 20:06 Urine Appearance Clear (Clear) 07/06/21 20:06 Urine pH 7.5 (4.5-7.5) 07/06/21 20:06 Ur Specific [place] 1.002 (1.000-1.030) 07/06/21 20:06 Urine Protein Negative (Negative) 07/06/21 20:06 Urine Glucose (UA) Negative (Negative) 07/06/21 20:06 Urine Ketones Negative (Negative) 07/06/21 20:06 Urine Nitrite Negative (Negative) 07/06/21 20:06 Ur Leukocyte Esterase Negative (Negative) 07/06/21 20:06 Urine WBC (Auto) Not Reportable 07/06/21 20:06 Urine RBC (Auto) Not Reportable 07/06/21 20:06 U Hyaline Cast (Auto) Not Reportable 07/06/21 20:06 U Epithel Cells (Auto) Not Reportable 07/06/21 20:06 Urine Bacteria (Auto) Not Reportable 07/06/21 20:06 Urine RBC 10-30 /hpf (0-4) H 07/06/21 20:06 Urine WBC 0-5 /hpf (0-5) 07/06/21 20:06 Ur Epithelial Cells 0-5 /lpf (0-5) 07/06/21 20:06 Electrocardiogram pending
[2021-07-07] MEDS ORDERED: ONDANSETRON INJ 2 MG/ML 2 ML VIAL IV PRN (10:16)
[2021-07-07] MEDS ORDERED: ATROPINE SULFATE 0.1 MG/ML 10ML SYR IV PRN (10:16)
[2021-07-07] MEDS ORDERED: LABETALOL HCL IV 5 MG/ML 20ML IV PRN (10:16)
[2021-07-07] MEDS ORDERED: fentaNYL citrate 100 MCG/2 ML VIAL IV PRN (10:16)
[2021-07-07] MEDS ORDERED: DIATRIZOATE MEGLUMINE 30% 100ML VIAL INSTIL ONE (11:22)
--- NOTE | 2021-07-07 11:41 | Fluoroscopy Report ---
FL retrograde includes kub CLINICAL HISTORY: Left ureteral stent placement. COMPARISON STUDY: None. FLUOROSCOPY TIME: 5.5 seconds. FINDINGS: A single fluoroscopic spot image of the abdomen demonstrate a left ureteral stent. Only the proximal portion of the stent is identified and appears in good position. IMPRESSION: Fluoroscopic assistance provided for left ureteral stent placement. ACT 112: Negative or not required by law. Electronically signed by: Saud Sheriff M.D. 07/07/2021 11:39 AM
[2021-07-07] MEDS ORDERED: ePHEDrine sulfate 50 MG/ML AMP ONE (11:47)
[2021-07-07] MEDS ORDERED: PHENYLEPHRINE HCL 10 MG/ML VIAL ONE (11:47)
[2021-07-07] MEDS ORDERED: ONDANSETRON INJ 2 MG/ML 2 ML VIAL ONE (11:47)
[2021-07-07] MEDS ORDERED: PROPOFOL IV EMULSION 10 MG/ML 20 ML VIAL IV ONE (11:47)
[2021-07-07] MEDS ORDERED: GLYCOPYRROLATE 0.2 MG/ML VIAL ONE (11:47)
[2021-07-07] MEDS ORDERED: LIDOCAINE 2% 2 ML VIAL/AMP(20MG/ML) INFIL ONE (11:47)
[2021-07-07] MEDS ORDERED: METOCLOPRAMIDE HCL INJ 5 MG/ML 2 ML VIAL ONE (11:47)
--- NOTE | 2021-07-07 11:51 | Operative Report ---
PG Post Operative Report Pre & Post Diagnosis Operation Date: 07/07/21 08:50 Pre-Op Diagnosis: (2) Ureteral stone with hydronephrosis Post-Op Diagnosis: (2) Ureteral stone with hydronephrosis I identified the patient and participated in the time-out.: Yes Procedure Operation Date: 07/07/21 08:50 Actual Procedures p Cystoscopy, Ureteronephroscopy, Retrograde Pyelogram, Laser Destruction and Extraction of the Stone, Stent insertion Left Ureter(Left) - Brice Brady MD Surgeon Brice Brady MD Cardiac Sonographer none Estimated Blood Loss 0 Findings See Below Stone visualized in mid left ureter, fragmented with laser lithotripsy and extracted with a wire basket. Successful left ureteral stent placement. Specimens Left ureteral stone Drains 6 Nauruan by 26 cm double-J ureteral stent in the left ureter Anesthesia Type General Complications none Disposition Accompanied Patient To Recovery: Yes Disposition: Recovery Room Indications Is a 55-year-old male with history of nephrolithiasis who presented to the ED with left-sided flank pain. He was found on CT scan to have a 7 mm obstructing stone in the mid left ureter. He is being brought to the OR for stent placement and possible stone treatment. Description of Procedure The patient was identified in the holding area and informed consent was confirmed. They were marked on the left side, then were taken to the operating room where general anesthesia was initiated. They were placed in the dorsal lithotomy position with all pressure points appropriately padded. They were prepped and draped in the usual sterile fashion and a preoperative timeout was performed. A well-lubricated cystoscope was inserted per urethra and panendoscopy was performed. His pendulous urethra was normal with no strictures or mucosal abnormalities. The prostate was notably enlarged with a high bladder neck. Bladder was mildly trabeculated. There was some stone debris in the dependent portion of the bladder. Ureteral orifices were in orthotopic position bilaterally. The left ureteral orifice was identified and cannulated with a 5 Nauruan open- ended catheter. A retrograde pyelogram was performed demonstrating the distal ureter was normal in course and caliber. The stone could not be easily visualized on x-ray. A 0.038" ZIPwire was advanced to the level of the kidney under fluoroscopic guidance. I Inserted the semirigid ureteroscope and advanced this alongside the wire into the distal left ureter. At approximately the level of the pelvic brim I visualized the culprit stone. It appeared to be approximately 7 mm in diameter. The 200 m holmium laser fiber was inserted and laser lithotripsy was performed using settings of 6 J and 6 Hz to fragment the stone into smaller pieces. Once the pieces were satisfactorily small, Nitinol wire basket was used to extract them to the level of the bladder. Eventually there was no remaining stone debris within the ureter. A final survey demonstrated that there was no significant trauma or perforation. The cystoscope was reinserted over the wire, then a 6 Nauruan x 26 centimeter do uble-J ureteral stent was advanced. When the wire was removed, the proximal curl was visualized in the kidney with x-ray, and the distal curl visualized in the bladder with the cystoscope. At this point the bladder was drained, and the stone fragments were collected and sent for analysis. All instrumentation was removed. The patient was then awakened from anesthesia and was brought to the PACU in stable condition. I attest to the content of the Intraoperative Record and any orders documented therein. Any exceptions are noted below.
--- NOTE | 2021-07-07 12:37 | Anesthesiology Progress Note ---
Date of Service July 07, 2021 Anesthesia Post Procedure Vital Signs Vital Signs: Temp Pulse Pulse Pulse Resp BP BP 07/07/21 12:27 36.8 C 89 18 128/66 07/07/21 12:10 36.4 C L 92 H 18 150/68 H 07/07/21 12:00 103 H 18 148/65 H 07/07/21 11:50 108 H 20 148/71 H 07/07/21 11:43 36.8 C 107 H 20 162/82 H 07/07/21 10:06 37.3 C 63 20 127/66 07/07/21 08:00 36.7 C 65 18 07/07/21 04:25 36.9 C 84 20 128/70 07/07/21 03:11 59 L 12 07/07/21 01:56 63 07/07/21 01:33 36.8 C 66 20 154/83 H 07/07/21 01:32 07/06/21 23:30 58 L 18 159/96 H 07/06/21 23:00 63 19 166/91 H 07/06/21 22:44 60 19 07/06/21 22:30 70 16 176/112 H 07/06/21 21:33 61 15 161/86 H 07/06/21 21:29 57 L 15 177/91 H 07/06/21 20:44 58 L 16 177/92 H 07/06/21 20:07 65 15 171/109 H 07/06/21 19:33 36.5 C 63 20 214/105 H BP Pulse Ox Pulse Ox 07/07/21 12:27 92 07/07/21 12:10 94 07/07/21 12:00 94 07/07/21 11:50 94 07/07/21 11:43 99 07/07/21 10:06 95 07/07/21 08:00 127/67 93 07/07/21 04:25 97 07/07/21 03:11 93 07/07/21 01:56 07/07/21 01:33 96 07/07/21 01:32 96 07/06/21 23:30 95 07/06/21 23:00 96 07/06/21 22:44 95 07/06/21 22:30 96 07/06/21 21:33 96 07/06/21 21:29 96 07/06/21 20:44 95 07/06/21 20:07 97 07/06/21 19:33 96 Pain Intensity Left Flank: Pain Intensity: 9 Transfer of Care Handoff Completed per policy Notes Mental Status: alert / awake / arousable Patient Amnestic to Procedure: Yes Nausea / Vomiting: adequately controlled Pain: adequately controlled Airway Patency, RR, SpO2: stable & adequate BP & HR: stable & adequate Hydration State: stable & adequate Anesthetic Complications: no major complications apparent
--- NOTE | 2021-07-07 15:45 | Electrocardiogram Report ---
Test Reason : Blood Pressure : / mmHG Vent. Rate : 062 BPM Atrial Rate : 062 BPM P-R Int : 152 ms QRS Dur : 106 ms QT Int : 440 ms P-R-T Axes : 000 -09 006 degrees QTc Int : 446 ms Poor data quality, interpretation may be adversely affected ppossible ectopic atrial rhythm Incomplete right bundle branch block Abnormal ECG When compared with ECG of 03-JUN-2014 16:07, P-wave morphology is changed Confirmed by Javi Pandya ([id number]) on 07/07/2021 3:44:37 PM Referred By: REFERRED SELF Confirmed By:Rafa Pandya
[2021-07-07] MEDS ORDERED: COUGH DROP (SUGAR FREE) LOZ 24 LOZ/1 BOX BUCCAL PRN (19:28)
[2021-07-07] MEDS ORDERED: TAMSULOSIN HCL 0.4 MG CAP PO SCH (21:00)
[2021-07-07] MEDS ORDERED: MELATONIN 3 MG TAB PO PRN (21:06)
--- NOTE | 2021-07-07 23:41 | Hospitalist Progress Note ---
Date of Service July 07, 2021 Assessment & Plan (1) Ureteral stone with hydronephrosis: Plan: Present on admission with Left flank pain associated with occasional hematuria CT abd/pelvis showed 7 mm left ureteral calculus which results in moderate to severe left hydronephrosis. The ureteral calculus is within the distal ureter, just inferior to the level of the sacroiliac joint. S/P Cystoscopy, Ureteronephroscopy, Retrograde Pyelogram, Laser Destruction and Extraction of the Stone, Stent insertion Left Ureter(Left) performed today by Dr. Brice Brady MD No post op complication Continue flomax and pain control Urology on board Ok from urology standpoint to discharge home Follow up with urology in 1-2 week for stent removal Clinically stable B/L LE edema Elevated D-dimer Doppler U/S showed no DVT within the right or left lower extremity. stable HTN BP has been fluctuated Continue Lisinopril FARIHA on CPAP GERD status post surgery DVT prophylaxis. Lovenox subcu Full code Disposition Will discharge home today Admission and Anticipated Discharge Date Admission Date: July 06, 2021 Subjective Pt was seen and examined for follow up on renal stone Lying in bed with no acute distress He had the stone removal early and stent placed this morning He said that he only has a mild discomfort He would like to stay tonight to make sure that he has no pain Denies any chest pain, palpitation, Dizziness and SOB Review of Systems Review of Systems: All systems reviewed & are unremarkable except as noted in Subjective Physical Exam Physical Exam: General- No acute distress Head- atraumatic Eyes- PERRL, EOMI, ENT- oropharynx clear Neck- supple, no JVD Lungs- clear to auscultation Heart- regular rhythm; no murmur Abdomen- normal bowel sounds, soft, nontender Extremities- no calf tenderness Neuro- alert, oriented x 3; PERRL, EOMI; no facial palsy; no dysarthria Skin- warm & dry Results & Data Results & Data ([facility]) Vital Signs (Past 12 Hours) Vital Signs Temp Pulse Pulse Resp BP BP Pulse Ox 07/07/21 23:17 37.1 C 66 18 130/73 94 07/07/21 21:29 80 33 H 93 07/07/21 19:41 36.7 C 80 18 151/69 H 93 07/07/21 13:45 36.7 C 88 18 132/70 92 04/20/22 13:15 36.7 C 85 18 168/87 H 91 07/07/21 12:45 36.7 C 90 18 148/68 H 90 07/07/21 12:27 36.8 C 89 18 128/66 92 07/07/21 12:10 36.4 C L 92 H 18 150/68 H 94 07/07/21 12:00 103 H 18 148/65 H 94 07/07/21 11:50 108 H 20 148/71 H 94 07/07/21 11:43 36.8 C 107 H 20 162/82 H 99
[2021-07-08] MEDS: oxyCODONE HCL IR 5 MG TAB (IMMEDIATE RELEASE) PO PRN ×2 (04:16→08:28)
[2021-07-08] MEDS: ENOXAPARIN INJ 40 MG/0.4 ML SYR SQ SCH (08:28)
[2021-07-08] MEDS: lisinopril 20 MG TAB PO SCH (08:28)
[2021-07-08] MEDS: SERTRALINE HCL 50 MG TABLET PO SCH (08:28)
--- NOTE | 2021-07-08 08:33 | Urology Progress Note ---
Date of Service July 08, 2021 Assessment & Plan (1) Ureteral stone with hydronephrosis: Plan: - POD#1 s/p cystoscopy, ureteroscopy, retrograde pyelogram, laser destruction/extraction of stone, and left ureteral stent placement. - Doing well, progressing as expected. - Afebrile, lab work reviewed - creatinine and WBC within normal limits yesterday, no new labs today at time of visit. - Tolerating left ureteral stent with minimal bother. - Okay to d/c from perspective when medically stable. - Recommend d/c with course of Tamsulosin, prn Pyridium and prn pain medication for stent management. - Expected clinical course reviewed, all questions answered. - Will arrange outpatient follow-up with our service for stent removal. Admission and Anticipated Discharge Date Admission Date: July 06, 2021 Supervising Physician Co-Signing Physician Notes Discussed patient with DAGOBERTO. Agree with plan. Subjective Pt seen and examined at bedside this AM. He is awake, alert and sitting up in bedside chair. No acute issues overnight. Subjectively doing well. Notes mild left flank discomfort with voiding. Voiding spontaneously, feels he is emptying bladder. No dysuria or hematuria. No nausea or vomiting. No fever or chills. Review of Systems Constitutional: as per Subjective / HPI Gastrointestinal: as per Subjective / HPI Genitourinary: + as per Subjective / HPI Physical Exam Constitutional: well developed, well nourished and + obese; no acute distress and not ill appearing Respiratory: normal respiratory effort and able to speak in complete sentences; no respiratory distress and no labored breathing Gastrointestinal (Abdomen): Inspection/Auscultation: abdomen normal to inspection; abdomen not distended Musculoskeletal: Head/Neck/Chest: normocephalic Skin: no visible skin rashes Neurologic: moves all extremities and awake Psychiatric: Orientation: alert and oriented x 3 Results & Data ([facility]) Vital Signs (Past 12 Hours) Vital Signs Temp Pulse Pulse Resp BP BP Pulse Ox 07/08/21 07:50 36.8 C 65 20 131/69 92 07/08/21 04:00 36.9 C 61 18 146/80 H 94 07/08/21 03:45 66 19 94 07/07/21 23:17 37.1 C 66 18 130/73 94 07/07/21 21:29 80 33 H 93 PG Care Time/CCT Total # of Minutes Spent Total Time Spent with Patient: Total time spent is greater than 50% in coordination of care (as documented) at patient's floor/unit and/or counseling patient: Coding Level of Care Code 73491 Subseq Hosp Care Lvl 2 Diagnoses Ureteral stone with hydronephrosis N13.2
--- NOTE | 2021-07-08 10:59 | Discharge Summary ---
Date of Service July 08, 2021 Admission HPI Per Admitting Provider History obtained from patient and records. Medical history significant for hypertension, FARIHA on CPAP, chronic hoarseness, GERD status post surgery, BPH, urolithiasis. 4 months history of intermittent achy left flank pain complaints with occasional hematuria reminiscent of kidney stone symptoms. No fever, no chills. No consultations done. Worsening pain noted along with nausea today. Patient consulted ER for evaluation. Medical History as above Surgical History : ESWL, esophagogastric fundoplasty, hernia surgery Family History : Heart disease Personal/Social history : Non-smoker, occasional EtOH intake, [employer] employee Admission Exam Per Admitting Provider GENERAL: Slightly uncomfortable, pleasant, morbidly obese, dysphonic (chronic ), no respiratory distress SKIN: Normal color, warm HEENT: [place] palpebral conjunctivae, no ptosis, dry buccal mucosa NECK : Supple, short neck, no tenderness CHEST : CTA, no tenderness HEART : Bradycardic, no obvious murmurs ABDOMEN: Some distention, nontender BACK : Minimal left flank tenderness EXTREMITIES : Bilateral LE swelling right greater than the left (new as per patient), no tenderness, no other conspicuous deformities noted NEUROLOGIC : Coherent, no facial asymmetry, no other gross focality Principal Diagnosis Ureteral stone with hydronephrosis: Lower extremity edema Hypertension FARIHA on CPAP Discharge Exam General- No acute distress Head- atraumatic Eyes- PERRL, EOMI, ENT- oropharynx clear Neck- supple, no JVD Lungs- clear to auscultation Heart- regular rhythm; no murmur Abdomen- normal bowel sounds, soft, nontender Extremities- no calf tenderness Neuro- alert, oriented x 3; PERRL, EOMI; no facial palsy; no dysarthria Skin- warm & dry Discharge Data Allergies Allergy/AdvReac Type Severity Reaction Status Date / Time ketorolac Allergy Unknown FREAK OUT Verified 07/10/21 00:01 Consultations 07/06/21 22:07 ED Decision to Admit Stat 07/07/21 01:32 Consult Urology Routine Procedures Performed Operation Date: 07/07/21 08:50 Actual Procedures s Stent insertion Left Ureter(Left) - Brice Brady MD p Cystoscopy, Ureteronephroscopy, Retrograde Pyelogram, Laser Destruction and Extraction of the Stone,(Left) - Brice Brady MD Ordered Studies 07/06/21 19:57 CT abd pelvis wo con Stat 07/06/21 22:52 US venous doppler LE BI Urgent 07/07/21 10:45 FL retrograde includes kub Routine FL retrograde includes kub CLINICAL HISTORY: Left ureteral stent placement. COMPARISON STUDY: None. FLUOROSCOPY TIME: 5.5 seconds. FINDINGS: A single fluoroscopic spot image of the abdomen demonstrate a left ureteral stent. Only the proximal portion of the stent is identified and appears in good position. IMPRESSION: Fluoroscopic assistance provided for left ureteral stent placement. ACT 112: Negative or not required by law. Electronically signed by: Saud Sheriff M.D. 07/07/2021 11:39 AM Dictated:07/07/21 1139 Transcribed: 07/07/21 113 BILATERAL LOWER EXTREMITY VENOUS DOPPLER HISTORY: Acute pain and swelling of the right lower leg leg swelling COMPARISON STUDY: None. FINDINGS: There is normal compressibility, flow, and augmentation within the bilateral lower extremity deep venous systems. IMPRESSION: No DVT within the right or left lower extremity. ACT 112: Negative or not required by law. Electronically signed by: Ernesto Batista M.D. 07/07/2021 6:35 AM Dictated:07/07/21 0635 Transcribed: 07/07/21 0635 XR chest 1V portable HISTORY: 55 years-old Male leg swelling acute swelling of the lower extremities COMPARISON: Chest radiographs 06/03/2014 TECHNIQUE: Portable AP view of the chest FINDINGS: The cardiac silhouette is enlarged. Moderate right hemidiaphragmatic elevation. Pulmonary vascular congestion. Mild bibasilar densities. There is no pneumothorax or large pleural effusion. No overt pulmonary edema. Apparent coarsening of interstitium is likely secondary to patient body habitus. Degenerative changes of the shoulders and spine. IMPRESSION: 1. Cardiomegaly with pulmonary vascular congestion. 2. Chronic right hemidiaphragmatic elevation with bibasilar atelectasis. ACT 112: Negative or not required by law. The above report was generated using voice recognition software. It may contain grammatical, syntax or spelling errors. Electronically signed by: Ernesto Batista M.D. 07/07/2021 6:47 AM Dictated:07/07/21 0646 Transcribed: 07/07/[address] OF THE ABDOMEN AND PELVIS WITHOUT CONTRAST CLINICAL HISTORY: Left flank pain. COMPARISON STUDY: CT of the abdomen and pelvis May 28, 2014. TECHNIQUE: Axial images of the abdomen and pelvis were obtained without IV contrast. Images were reviewed in the axial, sagittal, and coronal planes. Automated exposure control was utilized for the study. A dose lowering technique was utilized adhering to the principles of ALARA. FINDINGS: Lung bases are unremarkable. Elevation of the right hemidiaphragm is unchanged. Moderate to severe left hydronephrosis is due to a 7 mm calculus within the distal left ureter, located just inferior to the level of the sacroiliac joint. There is adjacent perinephric and periureteral stranding. 2 calculi within lower pole of the left kidney measure up to 5 mm. No right-sided urinary calculi are present. There is slight prominence of right collecting system without hydronephrosis. Prostate is enlarged, measuring 5.8 cm in transverse dimension. Evaluation of the remainder of the abdomen and pelvis is suboptimal on this unenhanced exam. Unenhanced images of the liver, spleen, adrenal glands and pancreas are unremarkable. Colonic diverticulosis is noted without evidence for acute diverticulitis. There is no evidence for a bowel obstruction. The appendix is normal. Fat-containing bilateral inguinal hernias, left larger than right, are present. IMPRESSION: 1. 7 mm left ureteral calculus which results in moderate to severe left hydronephrosis. The ureteral calculus is within the distal ureter, just inferior to the level of the sacroiliac joint. 2. Left-sided nephrolithiasis. 3. Colonic diverticulosis. No evidence for acute diverticulitis. 4. Enlarged prostate. ACT 112: Negative or not required by law. Electronically signed by: Toni Montenergo M.D. 07/06/2021 10:04 PM Dictated:07/06/212155 Transcribed: 07/06/212155 Hospital Course (1) Ureteral stone with hydronephrosis: Present on admission with Left flank pain associated with occasional hematuria CT abd/pelvis showed 7 mm left ureteral calculus which results in moderate to severe left hydronephrosis. The ureteral calculus is within the distal ureter, just inferior to the level of the sacroiliac joint. S/P Cystoscopy, Ureteronephroscopy, Retrograde Pyelogram, Laser Destruction and Extraction of the Stone, Stent insertion Left Ureter(Left) performed today by Dr. Brice Brady MD No post op complication Continue flomax and pain control Urology on board Ok from urology standpoint to discharge home Follow up with urology in 1-2 week for stent removal Clinically stable B/L LE edema Elevated D-dimer Doppler U/S showed no DVT within the right or left lower extremity. stable HTN BP has been fluctuated Continue Lisinopril FARIHA on CPAP GERD status post surgery DVT prophylaxis. Lovenox subcu Full code Disposition Will discharge home today Total Time Total Time Spent Total Time Spent (In Minutes): 35 minutes Discharge Plan Discharge Items Patient Disposition: Home - Self-Care Reason For Visit: HTN URG, OBS UROPATHY Discharge Diagnosis: Ureteral stone with hydronephrosis: Lower extremity edema Hypertension FARIHA on CPAP Activity: Resume your previous activity Non-emergency contact: Primary Care Provider and Urologist Call non-emergency contact if: you have any medication questions, your symptoms worsen and your temperature is above 101 Follow-up/Referrals: Renzo Haines DO [Outside Practitioners] - 07/14/21 8:20 am Diet: Heart Healthy Addtl Attending Provider Instructions: Follow up with your primary care provider within 1 week Follow up with urology for stent removal Please do not drive or operate any machine after taking the oxycodone Please hold next dose of oxycodone if you become drowsy and lethargy Seek medical attention if symptoms worsening Addtl Postage Machine Operator Provider Instructions: The surgery you had was ureteroscopy with laser lithotripsy and stent placement. What to expect after your ureteroscopy and stone removal procedure: You may notice small pieces of stone or stone dust/gravel in your urine over the next few days. Drink plenty of liquids to help flush your system. You may notice some blood in your urine. As long as you are able to urinate, this is ok. A prescription for Bactrim (trimethoprim/sulfamethoxazole), an antibiotic, was sent to your pharmacy. Please take this 1 hour prior to your stent removal. You have a ureteral stent in place - this will need to be removed. As long as the stent is in place, you may see some blood in the urine. You may have pain in your side when you urinate. We will have you come to the office for stent removal in ~7 days. Please remember to take your antibiotics 1 hour prior to this appointment. When to call [facility] at [phone]: Fever of 101F or higher Heavy bleeding Pain that is not controlled with medicine Uncontrolled vomiting Problems urinating or inability to urinate Pending Studies at Discharge: No Stand-Alone Forms: My [facility], Work/School Release, Smoking Cessation Medications and DC Order Prescriptions: New tamsulosin 0.4 mg Capsule 0.4 mg PO HS Qty: 30 RF: 0 oxycodone 5 mg Tablet 5 mg PO Q12H PRN (Reason: severe pain) Qty: 8 RF: 0 phenazopyridine [Pyridium] 100 mg tablet 100 mg PO Q8H Qty: 20 RF: 0 Continued lisinopril 20 mg tablet 20 mg PO QAM RF: 0 sertraline 100 mg tablet 150 mg PO QAM RF: 0 No Action ciprofloxacin HCl 500 mg tablet 500 mg PO BID Qty: 10 RF: 0 oxycodone 5 mg tablet 5 - 10 mg PO Q6H Qty: 24 RF: 0 Discharge Orders: Discharge Order (Routine); Ordered 07/08/21 Ordered By: Murray Resendiz Admission Data Admit Date/Time: 07/06/21 22:35 Attending Provider: Murray Resendiz Admit Provider: Arthur Fishman Primary Care Provider: PCP,NO Other Providers: Arthur Fishman ; Kimani Wolfe ; Etienne Streeter Christophe T. ; Kimberli Olivares ; Matthew Mohr ; Tasha Lanier ; Jaelyn Sweeney ; Orquidea Reyez ; Brice Brady ; Ángel Etienne ; Silvia Jacob ; Christine Reyez ; Lobito Figueredo Other Interventions: Discharge Summary Assessment (RN) Last Done: 07/08/21 10:54
[2021-07-10 21:22] LABS: Component 2 DNR; Source KIDNEY STONE
== END 2021-07-08 11:38 | disposition home or self-care (01) | DRG 661 ==
LOC: ED 19:28 → 2W 07-07 01:13